=== PATIENT | male | born 1990 | race Caucasian/White ===

== ENCOUNTER 2020-04-05 17:13 | Emergency (ER) | payer BC ==
[~2020-04-05] VITALS: Ht 180.3 cm; Wt 82.1 kg
--- NOTE | 2020-04-05 17:50 | NUR ---
BIBS TO ER BED 7. AAOX4. NOT IN RESP DISTRESS. AMBUALTORY. CAME IN FOR L EYE PRESSURE WHICH STARTED 2 HOURS [employer] WHILE HE WAS WORKING OUT. HE ALSO REPORTS THAT HIS VISION GOT BLURRED FOR ABOUT AN HOUR AND DESCRIBED IT IF HE WAS LOOKING THROUGH A WATER FALLS BUT REOLVED ALREADY. VISUAL ACUITY 20/20. PT GAXES ARE NORMAL. PERRLA.
[2020-04-05] MEDS ORDERED: FLUORESCEIN SODIUM OPHTH 1 EA STRIP ONE (17:54)
--- NOTE | 2020-04-05 18:00 | NUR ---
WALDO SANTANA AT BEDSIDE
--- NOTE | 2020-04-05 18:33 | NUR ---
Patient discharged to home in stable condition. Written and verbal after care instructions given. Patient verbalizes understanding of instruction. Pt ambulatory with a steady gait
[2020-04-05 18:34] VITALS: BP 121/66
== END 2020-04-05 18:34 | disposition home or self-care (01) ==
LOC: ER 17:13
DX: H57.12 Ocular pain, left eye (principal); Z88.0 Allergy status to penicillin; Z88.2 Allergy status to sulfonamides; Z60.2 Problems related to living alone
CPT/HCPCS: 99284; A6403